=== PATIENT | female | born 1995 | race Caucasian/White ===

== ENCOUNTER 2021-10-16 20:40 | Emergency (ER) | payer BC, MEDICAID ==
[~2021-10-16] VITALS: Ht 165.1 cm; Wt 72.6 kg
[2021-10-16 20:42] VITALS: BP 124/82
--- NOTE | 2021-10-16 20:42 | NUR ---
PT [facility] BLS. TKAEN TO BED 7
--- NOTE | 2021-10-16 20:55 | NUR ---
ASKED FOR URINE CUO BUT PT STATES SHES IN TOO MUCH PAIN
[2021-10-16] MEDS ORDERED: KETOROLAC 60 MG/2 ML VIAL IM ONE (21:05)
--- NOTE | 2021-10-16 21:48 | NUR ---
26 Y/O F BIBA FOR BACK PAIN. PAIN IS CHRONIC X1 YEAR BUT WAS EXACERBERATED BY CLEANING TODAY. PT STATES PAIN 10/10 AND IS DULL THAT RADIATES TO RIGHT LEG. PT STATES SHE TOOK TYLENOL FOR PAIN BUT NO RELIEF. PT STATES SHES GOTTEN XRAYS BUT NO FRACTURES FOUND. DENIES N/V/D; SKIN IS PINK/WARM/DRY; AAOX4, BED BOUND DUE TO PAIN. HR EVEN AND REGULAR; PT DENIES ANY FEVER, CP, SOB, OR COUGH AT THIS TIME; PMH: HIGH CHOLESTEROL, DEPRESSION MEDS: ZOLOFT, TRAZADONE, ASPIRIN
--- NOTE | 2021-10-16 23:39 | NUR ---
PT AMBULATE TO [facility] FOR URINE SAMPLE
--- NOTE | 2021-10-17 00:10 | NUR ---
PT BROUGHT BACK FROM CT
[2021-10-17] MEDS ORDERED: diazePAM 5 MG TAB PO ONE (00:15)
--- NOTE | 2021-10-17 01:48 | NUR ---
Patient appears to be resting comfortably in bed. Vital Signs within normal limits. Respirations even and unlabored. X2 SIDE RAILS UP FOR SAFETY
[2021-10-17] MEDS ORDERED: DIAZ5TAB6 PO (01:59)
[2021-10-17] MEDS ORDERED: NAPR-54 PO (01:59)
--- NOTE | 2021-10-17 02:04 | NUR ---
Patient discharged with v/s stable. Written and verbal after care instructions given and explained. Patient alert, oriented and verbalized understanding of instructions. Ambulatory with steady gait. All questions addressed prior to discharge. ID band removed. Patient advised to follow up with PMD. Rx of VALIUM/ NAPROSYN given. Opportunity to ask questions provided and answered.
[2021-10-17 02:10] VITALS: BP 106/70
--- NOTE | 2021-10-17 02:18 | NUR ---
The patient's care was reviewed and supervised by Beatriz Rojas RN.
== END 2021-10-17 02:04 | disposition home or self-care (01) ==
LOC: MED 20:40
DX: M54.50 Low back pain, unspecified (principal); F32.9 Major depressive disorder, single episode, unspecified; E78.5 Hyperlipidemia, unspecified; Z79.899 Other long term (current) drug therapy; Z90.49 Acquired absence of other specified parts of digestive tract
CPT/HCPCS: 72131; 81002; 81025; 96372; 99285; J1885